=== PATIENT | female | born 1960 | race Two or more races ===

== ENCOUNTER 2022-06-13 02:31 | Inpatient (IN) | payer MEDICAID, OTHER ==
[~2022-06-13] VITALS: Ht 162.6 cm; Wt 114.1 kg
[2022-06-13 03:38] LABS: Basophils # (auto) 0 10 ^3/uL (0-0.2); Basophils % (auto) 0.3 % (0.0-2.0); Eosinophils # (auto) 0.1 10 ^3/uL (0-0.8); Eosinophils % (auto) 0.6 % (0.0-7.0); Hematocrit 40.7 % (36.0-46.0); Hemoglobin 13.5 g/dL (12.2-16.2); Lymphocytes # (auto) 1.6 10 ^3/uL (0.4-5.4); Lymphocytes % (auto) 20.1 % (10.0-50.0); Mean Corpuscular Hemoglobin 31.4 pg (28.0-32.0); Mean Corpuscular Hgb Conc. 33.2 g/dL (32.0-36.0); Mean Corpuscular Volume 94.3 fL (80.0-100.0); Monocytes # (auto) 0.3 10 ^3/uL (0-1.3); Monocytes % (auto) 3.5 % (0.0-12.0); Neutrophils # (auto) 6.2 10 ^3/uL (1.6-8.6); Neutrophils % (auto) 75.5 % (37.0-80.0); Nucleated Red Blood Cells % 0.1 %; Red Blood Cells 4.32 10^6/uL (4.0-5.20); Red Cell Distribution Width 13.3 % (11.8-14.3); White Blood Cell 8.2 10^3/uL (4.4-10.8)
[2022-06-13 03:45] LABS: Albumin 3.5 g/dL (3.4-5.0); Calcium 9.1 mg/dL (8.5-10.1)
[2022-06-13] MEDS ORDERED: MORPHINE SULFATE 4 MG/ML SYR/VIAL IV ONE (03:45)
[2022-06-13] MEDS ORDERED: ONDANSETRON HCL 4 MG/2 ML VIAL IV ONE (03:45)
[2022-06-13] MEDS ORDERED: SODIUM CHLORIDE 0.9% 1,000 ML IVB ONE (03:45)
[2022-06-13 03:55] LABS: BUN/Creatinine Ratio 25.4; Bilirubin, Total 0.4 mg/dL (0.2-1.0); Total Protein 7.3 g/dL (6.4-8.2)
[2022-06-13 05:46] LABS: Urine Bacteria NONE SEEN /hpf (None Seen); Urine Blood 1+ /uL (Negative); Urine Specific Gravity 1.012 (1.001-1.035); Urine WBC 1 /hpf (0 - 5)
[2022-06-13] MEDS ORDERED: hydrALAZINE HCL 20 MG/ML VL IV PRN (06:45)
[2022-06-13] MEDS ORDERED: MORPHINE SULFATE INJ 2 MG/ml SYRG IV PRN (06:45)
[2022-06-13] MEDS ORDERED: ACETAMINOPHEN 325 MG TAB PO PRN (06:45)
[2022-06-13] MEDS ORDERED: TEMAZEPAM 15 MG CAP PO PRN (06:45)
[2022-06-13] MEDS ORDERED: NITROGLYCERIN 0.4 MG SL TAB SL PRN (06:45)
[2022-06-13] MEDS ORDERED: DEXTROSE (50%) 50ML SYRG IV PRN (06:45)
[2022-06-13] MEDS: HYDROmorphone HCL 2 MG/ML VL/or syr IV PRN ×2 (07:55→14:26)
[2022-06-13] MEDS: SODIUM CHLORIDE 0.9% 1,000 ML IV SCH (08:07)
[2022-06-13] MEDS: ACCU-CHEK COMFORT CURVE STRIP VI SCH ×4 (08:07→22:00)
[2022-06-13] MEDS: InsuLIN REG 1unit/0.01ml Soln (100units/ml) SC SCH ×3 (08:07→17:00)
[2022-06-13] MEDS: FAMOTIDINE (10MG/ML) 2ML VL IV SCH (09:20)
[2022-06-13] MEDS ORDERED: OMNIPAQUE ORAL SOLN 500ml 12mg/ml PO ONE (13:03)
[2022-06-13] MEDS: HYDROcodone-ACET 5/325MG TAB PO PRN (23:11)
[2022-06-14] MEDS: InsuLIN REG 1unit/0.01ml Soln (100units/ml) SC SCH ×5 (00:10→22:00)
[2022-06-14] MEDS: SODIUM CHLORIDE 0.9% 1,000 ML IV SCH (00:59)
[2022-06-14] MEDS: FAMOTIDINE (10MG/ML) 2ML VL IV SCH ×3 (01:25→23:03)
[2022-06-14 03:20] LABS: Basophils # (auto) 0 10 ^3/uL (0-0.2); Basophils % (auto) 0.4 % (0.0-2.0); Eosinophils # (auto) 0.1 10 ^3/uL (0-0.8); Eosinophils % (auto) 1.2 % (0.0-7.0); Hematocrit 39.3 % (36.0-46.0); Lymphocytes # (auto) 2.9 10 ^3/uL (0.4-5.4); Lymphocytes % (auto) 34.1 % (10.0-50.0); Mean Corpuscular Hemoglobin 31.3 pg (28.0-32.0); Mean Corpuscular Hgb Conc. 33.1 g/dL (32.0-36.0); Mean Corpuscular Volume 94.3 fL (80.0-100.0); Monocytes # (auto) 0.5 10 ^3/uL (0-1.3); Monocytes % (auto) 6.3 % (0.0-12.0); Red Blood Cells 4.17 10^6/uL (4.0-5.20); Red Cell Distribution Width 13.2 % (11.8-14.3); White Blood Cell 8.6 10^3/uL (4.4-10.8)
[2022-06-14 03:52] LABS: Albumin 3.1 g/dL (3.4-5.0); BUN/Creatinine Ratio 20.8; Bilirubin, Total 0.5 mg/dL (0.2-1.0); Calcium 8.5 mg/dL (8.5-10.1); Potassium 3.9 mmol/L (3.5-5.1); Total Protein 6.7 g/dL (6.4-8.2)
[2022-06-14 03:53] LABS: Cholesterol 152 mg/dL (< 200); LDL Cholesterol 108 mg/dL (< 100); Triglycerides 129 mg/dL (< 150)
[2022-06-14 03:55] LABS: HDL Cholesterol 40 mg/dL (40-59)
[2022-06-14] MEDS: HYDROcodone-ACET 5/325MG TAB PO PRN (06:36)
[2022-06-14] MEDS: ACCU-CHEK COMFORT CURVE STRIP VI SCH ×4 (08:15→22:00)
[2022-06-14] MEDS: ENOXAPARIN SOD 40 MG/0.4 ML SYRINGE SC SCH (09:49)
[2022-06-14] MEDS: ONDANSETRON HCL 4 MG/2 ML VIAL IV PRN ×2 (10:02→20:34)
[2022-06-14] MEDS: HYDROmorphone HCL 2 MG/ML VL/or syr IV PRN ×3 (10:04→20:34)
[2022-06-14] MEDS: D5W/SOD CHL 0.45%/KCL 20MEQ 1,000 ML IV SCH (14:59)
[2022-06-14 15:16] LABS: INR 1.02 (0.9-1.15); Partial Thromboplastin Time 30.3 sec (24.6-33.4)
[2022-06-14 22:00] VITALS: BP 121/62
[2022-06-14] MEDS: ceFAZolin 1GM/50ML 50 ML IV SCH (23:03)
[2022-06-14] MEDS ORDERED: AMLO-496 PO (23:03)
[2022-06-14] MEDS ORDERED: GABA300C10 PO (23:03)
[2022-06-14] MEDS ORDERED: ENAL10TA13 PO (23:03)
[2022-06-14] MEDS ORDERED: DICL1GEL50 TOP (23:03)
[2022-06-14] MEDS ORDERED: BACL10TA PO (23:03)
[2022-06-14] MEDS ORDERED: PARO-135 PO (23:03)
[2022-06-15] MEDS: D5W/SOD CHL 0.45%/KCL 20MEQ 1,000 ML IV SCH ×4 (04:29→23:35)
[2022-06-15 05:00] VITALS: BP 112/59
[2022-06-15] MEDS: ACCU-CHEK COMFORT CURVE STRIP VI SCH ×4 (06:02→22:00)
[2022-06-15] MEDS: InsuLIN REG 1unit/0.01ml Soln (100units/ml) SC SCH ×4 (06:02→22:00)
[2022-06-15] MEDS: ceFAZolin 1GM/50ML 50 ML IV SCH ×3 (06:07→21:43)
[2022-06-15 09:00] VITALS: BP 133/75
[2022-06-15] MEDS ORDERED: ceFAZolin 1GM/50ML 100 ML IV ONE (09:30)
[2022-06-15] MEDS: ENOXAPARIN SOD 40 MG/0.4 ML SYRINGE SC SCH (10:00)
[2022-06-15] MEDS: FAMOTIDINE (10MG/ML) 2ML VL IV SCH ×2 (10:00→21:37)
[2022-06-15] MEDS ORDERED: MIDAZOLAM HCL 2MG/2ML 2ml VIAL (1mg/ml) ONE (10:03)
[2022-06-15] MEDS ORDERED: fentaNYL CITRATE 100 MCG/2 ML VL ONE (10:03)
[2022-06-15] MEDS ORDERED: PROPOFOL 10 MG/ML 20 ML IV ONE (10:04)
[2022-06-15] MEDS ORDERED: GLYCOPYRROLATE 0.2 MG/ML 1ML VIAL ONE (10:04)
[2022-06-15] MEDS ORDERED: ePHEDrine SULFATE 50 MG/ML AMP ONE (10:04)
[2022-06-15] MEDS ORDERED: KETOROLAC TROMETH 60MG/2ML VIAL ONE (10:04)
[2022-06-15] MEDS ORDERED: LIDOCAINE 2% (LOCAL ANESTH.) PF 5ml SDV ONE (10:04)
[2022-06-15] MEDS ORDERED: ROCURONIUM 10MG/ML 10ML VIAL IV ONE ×2 (10:04→12:23)
[2022-06-15] MEDS ORDERED: HYDROmorphone HCL 2 MG/ML VL/or syr ONE (10:04)
[2022-06-15] MEDS ORDERED: ONDANSETRON HCL 4 MG/2 ML VIAL ONE (10:04)
[2022-06-15] MEDS ORDERED: DexAMETHasone SOD PHOS 10MG/1ML VIAL INJ ONE (10:04)
[2022-06-15] MEDS ORDERED: SUCCINYLCHOLINE CHLORIDE 20 MG/ML 10ML VIAL IV ONE (12:23)
[2022-06-15] MEDS ORDERED: POVIDONE IODINE 10 % TOPICAL OINT 30GM TOP ONE (13:54)
[2022-06-15] MEDS ORDERED: HYDROmorphone HCL 2 MG/ML VL/or syr IV PRN (14:30)
[2022-06-15] MEDS ORDERED: ONDANSETRON HCL 4 MG/2 ML VIAL IV PRN (14:30)
[2022-06-15] MEDS ORDERED: ALBUTEROL SULF 2.5 MG/0.5ML(0.5%) NEB SOLN NEB PRN (15:15)
[2022-06-15 15:37] VITALS: BP 133/75
[2022-06-15 17:00] VITALS: BP 139/73
[2022-06-15] MEDS ORDERED: SUGAMMADEX 200mg/2ml Vial (100MG/ML) IV ONE (17:24)
[2022-06-15] MEDS: ONDANSETRON HCL 4 MG/2 ML VIAL IV PRN ×2 (18:23→22:46)
[2022-06-15] MEDS: HYDROmorphone HCL 2 MG/ML VL/or syr IV PRN ×2 (18:24→22:48)
[2022-06-15 22:00] VITALS: BP 139/82
[2022-06-16] MEDS: ONDANSETRON HCL 4 MG/2 ML VIAL IV PRN ×2 (04:49→11:46)
[2022-06-16 05:00] VITALS: BP 97/119
[2022-06-16] MEDS: HYDROmorphone HCL 2 MG/ML VL/or syr IV PRN ×2 (05:14→11:46)
[2022-06-16] MEDS: InsuLIN REG 1unit/0.01ml Soln (100units/ml) SC SCH ×4 (05:30→20:53)
[2022-06-16] MEDS: ACCU-CHEK COMFORT CURVE STRIP VI SCH ×4 (05:30→20:52)
[2022-06-16] MEDS: ceFAZolin 1GM/50ML 50 ML IV SCH ×3 (06:52→21:08)
[2022-06-16 07:07] LABS: Calcium 8.6 mg/dL (8.5-10.1); Potassium 4.1 mmol/L (3.5-5.1)
[2022-06-16 07:09] LABS: BUN/Creatinine Ratio 22.2
[2022-06-16 07:12] LABS: Basophils # (auto) 0 10 ^3/uL (0-0.2); Eosinophils # (auto) 0 10 ^3/uL (0-0.8); Hematocrit 36.4 % (36.0-46.0); Hemoglobin 12.2 g/dL (12.2-16.2); Lymphocytes # (auto) 0.9 10 ^3/uL (0.4-5.4); Lymphocytes % (auto) 8.4 % (10.0-50.0); Mean Corpuscular Hemoglobin 31.6 pg (28.0-32.0); Mean Corpuscular Hgb Conc. 33.4 g/dL (32.0-36.0); Mean Corpuscular Volume 94.8 fL (80.0-100.0); Monocytes # (auto) 0.5 10 ^3/uL (0-1.3); Monocytes % (auto) 4.9 % (0.0-12.0); Neutrophils # (auto) 9.3 10 ^3/uL (1.6-8.6); Neutrophils % (auto) 86.7 % (37.0-80.0); Red Blood Cells 3.85 10^6/uL (4.0-5.20); Red Cell Distribution Width 12.9 % (11.8-14.3); White Blood Cell 10.8 10^3/uL (4.4-10.8)
[2022-06-16 07:14] LABS: Bilirubin, Total 0.7 mg/dL (0.2-1.0); Total Protein 6.4 g/dL (6.4-8.2)
[2022-06-16] MEDS: D5W/SOD CHL 0.45%/KCL 20MEQ 1,000 ML IV SCH ×2 (07:55→16:55)
[2022-06-16 08:00] VITALS: BP 127/67
[2022-06-16] MEDS: FAMOTIDINE (10MG/ML) 2ML VL IV SCH ×2 (11:45→21:08)
[2022-06-16 12:00] VITALS: BP 123/73
[2022-06-16 16:00] VITALS: BP 139/71
[2022-06-16] MEDS: ENOXAPARIN SOD 40 MG/0.4 ML SYRINGE SC SCH (16:19)
[2022-06-16] MEDS: HYDROcodone-ACET 5/325MG TAB PO PRN (20:05)
[2022-06-16 22:00] VITALS: BP 117/87
[2022-06-17] MEDS: D5W/SOD CHL 0.45%/KCL 20MEQ 1,000 ML IV SCH ×3 (00:35→15:25)
[2022-06-17 05:00] VITALS: BP 142/86
[2022-06-17] MEDS: ceFAZolin 1GM/50ML 50 ML IV SCH ×3 (05:25→21:53)
[2022-06-17] MEDS: InsuLIN REG 1unit/0.01ml Soln (100units/ml) SC SCH ×2 (05:52→11:30)
[2022-06-17] MEDS: ACCU-CHEK COMFORT CURVE STRIP VI SCH ×2 (05:54→11:30)
[2022-06-17 09:00] VITALS: BP 155/90
[2022-06-17] MEDS: ENOXAPARIN SOD 40 MG/0.4 ML SYRINGE SC SCH ×2 (10:00→15:14)
[2022-06-17] MEDS: HYDROcodone-ACET 5/325MG TAB PO PRN ×2 (10:44→18:31)
[2022-06-17] MEDS: FAMOTIDINE (10MG/ML) 2ML VL IV SCH ×2 (10:45→21:53)
[2022-06-17 13:00] VITALS: BP 134/67
[2022-06-17] MEDS: SENNA 8.6 MG TAB PO SCH ×2 (15:15→21:53)
[2022-06-17 17:00] VITALS: BP 133/73
[2022-06-17 22:00] VITALS: BP 122/63
[2022-06-18] MEDS: HYDROcodone-ACET 5/325MG TAB PO PRN ×2 (00:15→10:15)
[2022-06-18] MEDS: D5W/SOD CHL 0.45%/KCL 20MEQ 1,000 ML IV SCH ×3 (04:52→18:15)
[2022-06-18 05:00] VITALS: BP 120/58
[2022-06-18] MEDS: ceFAZolin 1GM/50ML 50 ML IV SCH ×2 (06:19→14:00)
[2022-06-18 09:00] VITALS: BP 112/61
[2022-06-18] MEDS: FAMOTIDINE (10MG/ML) 2ML VL IV SCH (10:01)
[2022-06-18] MEDS: ENOXAPARIN SOD 40 MG/0.4 ML SYRINGE SC SCH (10:01)
[2022-06-18] MEDS ORDERED: IBUPROFEN 600 MG TAB PO PRN (11:15)
[2022-06-18 13:00] VITALS: BP 100/47
[2022-06-18] MEDS ORDERED: HYDR-4902 PO (15:06)
[2022-06-18] MEDS ORDERED: SENN-83 PO (15:06)
[2022-06-18 16:48] VITALS: BP 165/80
== END 2022-06-18 20:22 | disposition home health service (06) | DRG 228 ==
LOC: ER 02:31 → EDBD 02:31 → OVERFLOW 07:00 → CENTRAL 06-14 21:05
PROVIDERS: ADMIT Nurse Practitioner Family; ATTEND Hospitalist
PROC: 0DBU0ZZ Excision of Omentum, Open Approach (ICD-10-PCS; 2022-06-15)
PROC: 0WQF0ZZ Repair Abdominal Wall, Open Approach (ICD-10-PCS; principal; 2022-06-15 12:24)
DX: K42.0 Umbilical hernia with obstruction, without gangrene (principal); E66.01 Morbid (severe) obesity due to excess calories; Z20.822 Contact with and (suspected) exposure to COVID-19; K59.00 Constipation, unspecified; I10 Essential (primary) hypertension; Z68.37 Body mass index [BMI] 37.0-37.9, adult
CPT/HCPCS: 36415; 71045; 74176; 74177; 80053; 80061; 81001; 82962; 83036; 83690; 84484; 85025; 85610; 85730; 87081; 87426; 93005; 93306; 94640; 96361; 96374; 96375; 97163; G0378; J0330; J0690; J1100; J1885; J2001; J2250; J2405; J2704; J3490